=== PATIENT | male | born 1975 | race Caucasian/White ===

== ENCOUNTER 2020-05-18 14:13 | Emergency (ER) | payer MEDICAID ==
[~2020-05-18] VITALS: Ht 180.3 cm; Wt 110.1 kg
[~2020-05-18 14:13] MED LIST: OXYC-307 PO
[2020-05-18 14:22] VITALS: BP 159/103
--- NOTE | 2020-05-18 14:46 | NUR ---
SOFTWARE BUSINESS ANALYST: PT TO ROOM FROM [facility]. PT AMBULATORY WITH STEADY GAIT. J CARLOS
== END 2020-05-18 15:57 | disposition home or self-care (01) ==
LOC: ED 15:15
DX: G89.29 Other chronic pain (principal); M54.5 Low back pain; Z76.0 Encounter for issue of repeat prescription
CPT/HCPCS: 99281

== ENCOUNTER 2020-06-24 14:01 | Emergency (ER) | payer MEDICAID ==
[~2020-06-24] VITALS: Ht 177.8 cm; Wt 104.1 kg
[2020-06-24 14:10] VITALS: BP 116/88
--- NOTE | 2020-06-24 14:22 | NUR ---
PT AMBULATORY TO ROOM FROM LOBBY
[2020-06-24] MEDS ORDERED: AMPH5CAP PO (14:35)
--- NOTE | 2020-06-24 14:36 | NUR ---
PT WITH HARD CALLASES AND CLOSED BLISTERS ON PADS OF BOTH FEET. FOOT BATH SUPPLIES PROVIDED AND PT INSTRUCTED TO SOAK THEN WASH FEET.
--- NOTE | 2020-06-24 14:50 | NUR ---
PTS FEET CLEANED, BACITRACIN AND GAUZE DRESSING APPLIED TO BLISTERS ON TOES. PT GIVEN ADDITIONAL DRESSING SUPPLIES, SOAP, LOTION. CLEAN SOCKS AND A PAIR OF SHOES.
[2020-06-24] MEDS ORDERED: NEOSPORIN OINT. PKT 1 PACKET ONE (14:51)
--- NOTE | 2020-06-24 15:00 | NUR ---
Patient/Caregiver given discharge instructions and they have confirmed that they understand the instructions. Patient ambulatory with steady gait.
== END 2020-06-24 15:10 | disposition home or self-care (01) ==
LOC: ED 14:54
DX: M79.671 Pain in right foot (principal); M79.672 Pain in left foot; I10 Essential (primary) hypertension
CPT/HCPCS: 99282

== ENCOUNTER 2020-11-10 14:27 | Emergency (ER) | payer MEDICAID ==
[~2020-11-10] VITALS: Ht 180.3 cm; Wt 104.5 kg
[~2020-11-10 14:27] MED LIST changes: +AMPH5CAP PO; -OXYC-307 PO; +OXYC-380 PO
[2020-11-10] MEDS ORDERED: SODIUM CHLORIDE 0.9% 1,000ML IVBOLUS ONE (14:30)
--- NOTE | 2020-11-10 14:40 | NUR ---
PT HERE FOR C/O HAVING BLOOD WITH BM X3 DAYS, ALSO REPORTS FEELING LIGHT HEADED AND "PASSED OUT" LAST NIGHT. PT PLACED ON CARDIAC AND VITALS MONITORS, FALL PRECAUTIONS IN PLACE. SIGNIFICANT OTHER, YEN AT BEDSIDE.
[2020-11-10] MEDS ORDERED: AMIT25TA PO (14:47)
[2020-11-10] MEDS ORDERED: ESCI20TA8 PO (14:47)
[2020-11-10] MEDS ORDERED: DEXT5TAB23 PO (14:47)
[2020-11-10] MEDS ORDERED: DEXT10TA22 PO (14:47)
[2020-11-10] MEDS ORDERED: ALBU90AE2 INH (14:48)
[2020-11-10 15:22] LABS: BASOPHILS % (AUTO) 1 % (0-1); EOSINOPHILS % (AUTO) 2 % (1-7); LYMPHOCYTES % (AUTO) 18 % (22-44); MEAN CORPUSCULAR HEMOGLOBIN 32.7 pg (27.5-34.5); MEAN CORPUSCULAR HGB CONC 35.4 g/dL (33.2-36.2); MEAN PLATELET VOLUME 7.7 fL (7.4-10.4); MONOCYTES % (AUTO) 6 % (2-9); NEUTROPHILS % (AUTO) 74 % (42-75); PLATELET COUNT 310 x10^3/uL (130-400); RED BLOOD COUNT 3.51 x10^6/uL (4.38-5.82); RED CELL DISTRIBUTION WIDTH 13.5 % (9.4-14.8)
[2020-11-10 15:23] LABS: ALBUMIN 3.2 g/dL (3.4-5.0); ANION GAP 5 mmol/L (5-15); CHLORIDE 106 mmol/L (98-107); MD NO
[2020-11-10 15:27] LABS: ALANINE AMINOTRANSFERASE 21 U/L (12-78); ALKALINE PHOSPHATASE 53 U/L (45-117); BILIRUBIN,TOTAL 0.5 mg/dL (0.2-1.0); CREATININE 1.03 mg/dL (0.7-1.3); TOTAL PROTEIN 6.2 g/dL (6.4-8.2)
[2020-11-10 16:33] VITALS: BP 114/66
== END 2020-11-10 17:02 | disposition home or self-care (01) ==
LOC: ED 16:55
DX: K64.4 Residual hemorrhoidal skin tags (principal); K62.89 Other specified diseases of anus and rectum; R55 Syncope and collapse; R42 Dizziness and giddiness; I10 Essential (primary) hypertension; R00.0 Tachycardia, unspecified; F17.200 Nicotine dependence, unspecified, uncomplicated
CPT/HCPCS: 36415; 80053; 85025; 86850; 86900; 93005; 99284; J7030

== ENCOUNTER 2021-05-16 11:34 | Emergency (ER) | payer MEDICAID ==
[~2021-05-16] VITALS: Ht 180.3 cm; Wt 111.2 kg
[~2021-05-16 11:34] MED LIST changes: +ALBU90AE2 INH; +AMIT25TA PO; +DEXT10TA22 PO; +DEXT5TAB23 PO; +ESCI20TA8 PO
--- NOTE | 2021-05-16 13:15 | NUR ---
pt walked back to room at this time by rn. pt nad, appears comfortable, changed into gown resting on gurney, SO at bs, bed in lowest, rails engaged, call light on lap, wctm. pt placed on spo2/bp monitoring. pt reports coming into ed for left shoulder pain because "i dislocated it and cant pop it back in and just cant tkae the pain anymore". pt rad completed, no shoulder deformity noted at this time. awaiting provider kaylah
[2021-05-16] MEDS ORDERED: KETOROLAC 30 MG/1 ML IM ONE (14:00)
[2021-05-16] MEDS ORDERED: KETOROLAC 30 MG/1 ML ONE (14:09)
[2021-05-16 14:12] VITALS: BP 168/99
--- NOTE | 2021-05-16 14:27 | NUR ---
Patient given discharge instructions and they have confirmed that they understand the instructions. Patient ambulatory with steady gait. NAD, all questions answered appropriately, denies additional needs at this time. No personal belongings left in room after discharge.
== END 2021-05-16 14:29 | disposition home or self-care (01) ==
LOC: ED 14:20
DX: G89.11 Acute pain due to trauma (principal); M75.32 Calcific tendinitis of left shoulder; M25.512 Pain in left shoulder; I10 Essential (primary) hypertension; X58.XXXA Exposure to other specified factors, initial encounter; Y93.89 Activity, other specified; Y92.009 Unspecified place in unspecified non-institutional (private) residence as the place of occurrence of the external cause; Y99.8 Other external cause status
CPT/HCPCS: 73030; 96372; 99283; J1885